=== PATIENT | female | born 1990 | race Two or more races ===

== ENCOUNTER 2020-07-19 07:23 | Emergency (ER) | payer MEDICAID ==
[~2020-07-19] VITALS: Ht 157.5 cm; Wt 52.2 kg
[2020-07-19 07:29] VITALS: BP 98/60
== END 2020-07-19 07:40 | disposition left against medical advice (07) ==
LOC: ER 07:23
DX: R10.9 Unspecified abdominal pain (principal); R11.0 Nausea; R30.9 Painful micturition, unspecified; Z53.21 Procedure and treatment not carried out due to patient leaving prior to being seen by health care provider

== ENCOUNTER 2020-10-13 09:49 | Emergency (ER) | payer MEDICAID ==
[~2020-10-13] VITALS: Ht 157.5 cm; Wt 49.9 kg
[2020-10-13 10:30] LABS: Basophils # (auto) 0 10 ^3/uL (0-0.2); Basophils % (auto) 0.7 % (0.0-2.0); Eosinophils # (auto) 0.1 10 ^3/uL (0-0.8); Eosinophils % (auto) 1.6 % (0.0-7.0); Hematocrit 39.3 % (36.0-46.0); Hemoglobin 13.5 g/dL (12.2-16.2); Lymphocytes # (auto) 1.8 10 ^3/uL (0.4-5.4); Lymphocytes % (auto) 37.1 % (10.0-50.0); Mean Corpuscular Hemoglobin 30.6 pg (28.0-32.0); Mean Corpuscular Hgb Conc. 34.3 g/dL (32.0-36.0); Mean Corpuscular Volume 89.3 fL (80.0-100.0); Monocytes # (auto) 0.3 10 ^3/uL (0-1.3); Monocytes % (auto) 6.4 % (0.0-12.0); Neutrophils # (auto) 2.7 10 ^3/uL (1.6-8.6); Neutrophils % (auto) 54.2 % (37.0-80.0); Nucleated Red Blood Cells % 0.1 %
[2020-10-13 10:53] LABS: Calcium 8.9 mg/dL (8.5-10.1)
[2020-10-13 11:01] LABS: BUN/Creatinine Ratio 19.1; Bilirubin, Total 0.6 mg/dL (0.2-1.0); Total Protein 8.4 g/dL (6.4-8.2)
[2020-10-13] MEDS ORDERED: SODIUM CHLORIDE 0.9% 1,000 ML IV ONE (11:30)
[2020-10-13] MEDS ORDERED: ONDANSETRON ODT 4 MG TAB PO ONE (11:30)
[2020-10-13 13:58] VITALS: BP 102/71
== END 2020-10-13 14:24 | disposition home or self-care (01) ==
LOC: ER 09:51
DX: K52.9 Noninfective gastroenteritis and colitis, unspecified (principal); Z20.822 Contact with and (suspected) exposure to COVID-19
CPT/HCPCS: 36415; 80053; 83690; 84702; 85025; 87426; 96360; 99283; J7030; Q0162